=== PATIENT | male | born 1990 | race Hispanic/Latino ===

== ENCOUNTER 2017-07-30 19:40 | Emergency (ER) | payer OTHER ==
[2017-07-30] MEDS ORDERED: cefTRIAXone\\ROCEPHIN 250 MG VIAL ONE (20:19)
[2017-07-30] MEDS ORDERED: Acyclovir 400 mg Tablet ONE (20:19)
[2017-07-30] MEDS ORDERED: Azithromycin 250 MG TAB ONE (20:19)
[2017-07-30] MEDS ORDERED: Sterile Water 0 ML ONE (20:20)
[2017-07-30] MEDS ORDERED: Water For Inject, Bacteriostat 0 ML ONE (20:20)
[2017-07-31 21:32] LABS: Chlamydia by PCR Not Detected (NotDetected); GC by PCR Not Detected (NotDetected)
== END 2017-07-30 20:50 | disposition home or self-care (01) ==
LOC: SCSER 19:40
DX: A64 Unspecified sexually transmitted disease (principal)
CPT/HCPCS: 87252; 87491; 87591; 96372; A4216; J0696